=== PATIENT | male | born 1960 | race Caucasian/White ===

== ENCOUNTER 2018-07-27 09:44 | Emergency (ER) | payer MEDICARE, MEDICAID ==
[~2018-07-27] VITALS: Ht 175.3 cm; Wt 77.3 kg
[2018-07-27 09:50] VITALS: Ht 175.3 cm; Wt 77.3 kg
[2018-07-27] MEDS ORDERED: BP PILL (09:52)
[2018-07-27] MEDS ORDERED: NEURONTIN 300300 MG PO (09:52)
[2018-07-27] MEDS ORDERED: [UNRECOGNIZED DRUG - REMARK] (09:53)
[2018-07-27] MEDS ORDERED: ZOFRAN ODT4 MG/UDTAB PO (10:56)
[2018-07-27 11:32] VITALS: BP 108/79
== END 2018-07-27 11:33 | disposition home or self-care (01) ==
LOC: D.ER 09:44
DX: G43.909 Migraine, unspecified, not intractable, without status migrainosus (principal); R11.0 Nausea

== ENCOUNTER 2018-08-12 12:47 | Emergency (ER) | payer MEDICAID ==
[~2018-08-12] VITALS: Ht 175.3 cm; Wt 77.3 kg
[~2018-08-12 12:47] MED LIST: BP PILL; NEURONTIN 300300 MG PO; ZOFRAN ODT4 MG/UDTAB PO; [UNRECOGNIZED DRUG - REMARK]
[2018-08-12 12:54] VITALS: Ht 175.3 cm; Wt 77.3 kg
[2018-08-12 15:25] LABS: BASOPHILS 0.4 % (0-2); EOSINOPHILS 1.3 % (0-7); HEMATOCRIT 43.3 % (42.0-54.0); HEMOGLOBIN 15.3 g/dL (13.5-17.5); IMMATURE GRANULOCYTES 0.3 % (0-5); LYMPHOCYTES 13.4 % (15-50); MCH 31.8 pg (26.0-34.0); MCHC 35.3 g/dL (31.0-37.0); MEAN PLATELET VOLUME 10.1 fL (7.4-10.4); MONOCYTES 9.1 % (2-11); NEUTROPHILS 75.5 % (40-80); PLATELET COUNT 282 10x3/uL (130-400); RBC 4.81 10x6/uL (4.20-6.10); RDW 14.2 % (11.5-14.5)
[2018-08-12 15:38] LABS: ALBUMIN 3.6 g/dL (3.4-5.0); ANION GAP 12.1 mmol/L (8-16); BILIRUBIN - TOTAL 0.58 mg/dL (0.2-1.3); CARBON DIOXIDE 26.1 mmol/L (21.0-32.0); CREATININE - SERUM 1.1 mg/dL (0.6-1.3); POTASSIUM - SERUM 4.2 mmol/L (3.5-5.1); PROTEIN - SERUM 7.1 g/dL (6.4-8.2)
[2018-08-12] MEDS ORDERED: TORADOL10 MG PO (17:00)
[2018-08-12 19:23] VITALS: BP 128/61
== END 2018-08-12 18:34 | disposition home or self-care (01) ==
LOC: D.ER 12:47
PROVIDERS: Family Medicine
DX: H60.502 Unspecified acute noninfective otitis externa, left ear (principal); R50.9 Fever, unspecified; E86.0 Dehydration; R05 Cough

== ENCOUNTER 2018-08-17 07:06 | Emergency (ER) | payer MEDICAID ==
[~2018-08-17] VITALS: Ht 175.3 cm; Wt 77.3 kg
[~2018-08-17 07:06] MED LIST changes: +TORADOL10 MG PO
[2018-08-17 07:14] VITALS: Ht 175.3 cm; Wt 77.3 kg
[2018-08-17] MEDS ORDERED: NAPROSYN500 MG PO (07:44)
[2018-08-17] MEDS ORDERED: CLEOCIN HCL300 MG PO (07:44)
[2018-08-17 07:54] VITALS: BP 124/83
== END 2018-08-17 07:54 | disposition home or self-care (01) ==
LOC: D.ER 07:06
DX: M71.122 Other infective bursitis, left elbow (principal); I10 Essential (primary) hypertension; K21.9 Gastro-esophageal reflux disease without esophagitis

== ENCOUNTER 2018-09-28 08:40 | Emergency (ER) | payer MEDICAID ==
[~2018-09-28] VITALS: Ht 175.3 cm; Wt 77.3 kg
[~2018-09-28 08:40] MED LIST changes: +CLEOCIN HCL300 MG PO; +NAPROSYN500 MG PO
[2018-09-28 08:51] VITALS: Ht 175.3 cm; Wt 77.3 kg
[2018-09-28 09:15] LABS: BASOPHILS 0.5 % (0-2); EOSINOPHILS 3.3 % (0-7); HEMATOCRIT 41.9 % (42.0-54.0); IMMATURE GRANULOCYTES 0.2 % (0-5); MCH 31.8 pg (26.0-34.0); MCHC 35.8 g/dL (31.0-37.0); MEAN PLATELET VOLUME 9.5 fL (7.4-10.4); MONOCYTES 9.5 % (2-11); NEUTROPHILS 63.5 % (40-80); PLATELET COUNT 278 10x3/uL (130-400); RBC 4.71 10x6/uL (4.20-6.10); RDW 14.2 % (11.5-14.5); WBC 10.1 10x3/uL (4.8-10.8)
[2018-09-28 09:36] LABS: ALBUMIN 3.7 g/dL (3.4-5.0); ALKALINE PHOSPHATASE 71 U/L (46-116); ALT (SGPT) 24 U/L (10-68); BILIRUBIN - TOTAL 0.39 mg/dL (0.2-1.3); CALC OSMOLALITY 259 mosm/kg (275-300); CALCIUM 9.2 mg/dL (8.5-10.1); CARBON DIOXIDE 25.4 mmol/L (21.0-32.0); CHLORIDE - SERUM 102 mmol/L (98-107); GLUCOSE 125 mg/dL (74-106); POTASSIUM - SERUM 4.5 mmol/L (3.5-5.1); SODIUM 126 mmol/L (136-145); UREA NITROGEN 30 mg/dL (7-18); eGFR NON AFRICAN AMERICAN 82 mL/min (90-120)
[2018-09-28 10:14] LABS: APPEARANCE CLEAR (CLEAR); BACTERIA FEW /hpf (NONE SEEN); BILIRUBIN NEGATIVE (NEGATIVE); COLOR YELLOW (YELLOW); EPITHELIAL CELLS OCC /hpf (0-5); GLUCOSE NEGATIVE (NEGATIVE); KETONE NEGATIVE (NEGATIVE); MUCUS <1+ /lpf (NONE SEEN); NITRITE NEGATIVE (NEGATIVE); PROTEIN NEGATIVE (NEGATIVE); RED CELLS - URINE OCC /hpf (0-5); SPECIFIC GRAVITY 1.015 (1.005-1.020); UROBILINOGEN NORMAL (NORMAL); WHITE CELLS - URINE 0-5 /hpf (0-5)
[2018-09-28 12:02] VITALS: BP 152/84
== END 2018-09-28 12:04 | disposition home or self-care (01) ==
LOC: D.ER 08:40
PROVIDERS: Emergency Medicine
DX: T67.5XXA Heat exhaustion, unspecified, initial encounter (principal); X58.XXXA Exposure to other specified factors, initial encounter; Y93.89 Activity, other specified; Y92.89 Other specified places as the place of occurrence of the external cause; E86.0 Dehydration

== ENCOUNTER 2018-12-08 07:52 | Emergency (ER) | payer MEDICAID ==
[~2018-12-08] VITALS: Ht 175.3 cm; Wt 80.9 kg
[2018-12-08 07:57] VITALS: Ht 175.3 cm; Wt 80.9 kg
[2018-12-08 08:41] LABS: BASOPHILS 0.5 % (0-2); HEMATOCRIT 42.7 % (42.0-54.0); HEMOGLOBIN 14.5 g/dL (13.5-17.5); IMMATURE GRANULOCYTES 0.2 % (0-5); LYMPHOCYTES 21.4 % (15-50); MCH 31.2 pg (26.0-34.0); MCV 91.8 fL (80.0-100.0); MEAN PLATELET VOLUME 9.9 fL (7.4-10.4); MONOCYTES 11.9 % (2-11); PLATELET COUNT 294 10x3/uL (130-400); RBC 4.65 10x6/uL (4.20-6.10); RDW 13.9 % (11.5-14.5); WBC 8.6 10x3/uL (4.8-10.8)
[2018-12-08 08:49] LABS: APTT 31.9 SECONDS (22.8-39.4); INR 0.98 (0.85-1.17); PROTIME 12.5 SECONDS (11.6-15.0)
[2018-12-08 08:55] LABS: ALBUMIN 3.5 g/dL (3.4-5.0); ALKALINE PHOSPHATASE 67 U/L (46-116); ALT (SGPT) 39 U/L (10-68); CALC OSMOLALITY 278 mosm/kg (275-300); CALCIUM 8.5 mg/dL (8.5-10.1); CARBON DIOXIDE 28.4 mmol/L (21.0-32.0); CHLORIDE - SERUM 105 mmol/L (98-107); CREATININE - SERUM 0.9 mg/dL (0.6-1.3); GLUCOSE 96 mg/dL (74-106); POTASSIUM - SERUM 4.3 mmol/L (3.5-5.1); PROTEIN - SERUM 6.9 g/dL (6.4-8.2); SODIUM 139 mmol/L (136-145); UREA NITROGEN 14 mg/dL (7-18); eGFR NON AFRICAN AMERICAN > 90 mL/min (90-120)
[2018-12-08 09:07] LABS: CKMB 1.5 U/L (0.0-3.6); CREATINE KINASE 111 UL (21-232); PRO BNP 181 pg/mL (0-125); TROPONIN-I < 0.017 ng/mL (0.000-0.060)
[2018-12-08 09:39] VITALS: BP 123/89
== END 2018-12-08 09:29 | disposition home or self-care (01) ==
LOC: D.ER 07:52
PROVIDERS: Family Medicine
DX: J06.9 Acute upper respiratory infection, unspecified (principal); Z72.0 Tobacco use; I10 Essential (primary) hypertension

== ENCOUNTER 2018-12-15 10:57 | Inpatient (IN) | payer MEDICAID ==
[~2018-12-15] VITALS: Ht 175.3 cm; Wt 80.7 kg
[2018-12-15] MEDS ORDERED: NYQUILL PO (11:19)
[2018-12-15] MEDS ORDERED: DAYQUILL PO (11:19)
[2018-12-15 11:34] LABS: BASOPHILS 0.5 % (0-2); EOSINOPHILS 4.7 % (0-7); HEMATOCRIT 41.9 % (42.0-54.0); HEMOGLOBIN 14.4 g/dL (13.5-17.5); IMMATURE GRANULOCYTES 0.1 % (0-5); LYMPHOCYTES 31.5 % (15-50); MCH 31.6 pg (26.0-34.0); MCHC 34.4 g/dL (31.0-37.0); MCV 92.1 fL (80.0-100.0); MEAN PLATELET VOLUME 10.3 fL (7.4-10.4); MONOCYTES 8.3 % (2-11); NEUTROPHILS 54.9 % (40-80); PLATELET COUNT 295 10x3/uL (130-400); RBC 4.55 10x6/uL (4.20-6.10); RDW 13.7 % (11.5-14.5); WBC 9.1 10x3/uL (4.8-10.8)
[2018-12-15 11:40] LABS: CALC OSMOLALITY 279 mosm/kg (275-300); CALCIUM 8.5 mg/dL (8.5-10.1); CARBON DIOXIDE 29.3 mmol/L (21.0-32.0); CHLORIDE - SERUM 102 mmol/L (98-107); GLUCOSE 136 mg/dL (74-106); POTASSIUM - SERUM 3.4 mmol/L (3.5-5.1); SODIUM 139 mmol/L (136-145); UREA NITROGEN 12 mg/dL (7-18); eGFR NON AFRICAN AMERICAN 82 mL/min (90-120)
[2018-12-15 11:47] LABS: APTT 32.8 SECONDS (22.8-39.4); INR 0.99 (0.85-1.17); PROTIME 12.6 SECONDS (11.6-15.0)
[2018-12-15 11:57] LABS: ALBUMIN 3.7 g/dL (3.4-5.0); ALKALINE PHOSPHATASE 75 U/L (46-116); ALT (SGPT) 53 U/L (10-68); BILIRUBIN - TOTAL 0.66 mg/dL (0.2-1.3); CKMB 2.9 U/L (0.0-3.6); CREATINE KINASE 353 UL (21-232); PRO BNP 117 pg/mL (0-125); PROTEIN - SERUM 7.2 g/dL (6.4-8.2)
[2018-12-15 11:59] LABS: TROPONIN-I < 0.017 ng/mL (0.000-0.060)
--- NOTE | 2018-12-15 12:01 | NUR ---
PT C/O HEADACHE, REQUESTING MEDICAION FOR HIS PAIN. TREATING PROVIDER NOTIFIED OF PT REQUEST.
--- NOTE | 2018-12-15 12:12 | NUR ---
NOTIFIED BY LAB OF LACTIC ACID OF 2.4 CRITICAL LAB SHEET COMPLETED AND PLACED ON PT'S CHART. TREATING PROVIDER NOTIFIED.
[2018-12-15 12:37] VITALS: BP 99/64
[2018-12-15 14:59] VITALS: BP 119/74; BMI 26.3
[2018-12-15] MEDS ORDERED: PEPCID40 MG PO (15:01)
[2018-12-15] MEDS ORDERED: FLORINEF 0.1 M0.1 MG PO (15:03)
[2018-12-15 16:16] VITALS: BP 119/74
[2018-12-15 16:41] LABS: APPEARANCE CLEAR (CLEAR); BILIRUBIN NEGATIVE (NEGATIVE); COLOR YELLOW (YELLOW); GLUCOSE 100 mg/dL (NEGATIVE); KETONE NEGATIVE (NEGATIVE); NITRITE NEGATIVE (NEGATIVE); PROTEIN NEGATIVE (NEGATIVE); SPECIFIC GRAVITY 1.015 (1.005-1.020); UROBILINOGEN NORMAL (NORMAL)
[2018-12-15 16:42] LABS: MUCUS <1+ /lpf (NONE SEEN); RED CELLS - URINE 0-5 /hpf (0-5); WHITE CELLS - URINE 0-5 /hpf (NEGATIVE)
--- NOTE | 2018-12-15 18:24 | NUR ---
RESTING IN BED. DENIES NEEDS. BED LOW. CALL CEE AND PERSONAL ITEMS IN REACH.
[2018-12-15 20:28] VITALS: BP 118/73
[2018-12-16 01:16] VITALS: BP 106/79
--- NOTE | 2018-12-16 02:22 | NUR ---
PT RESTING IN BED. EYES CLOSED. NO SIGNS OF DISTRESS. BREATHING EVEN AND UNLABORED. IV SITE RT FA DRESSING CLEAN DRY AND INTACT. NO SIGNS OF INFECTION. SKIN CLEAN DRY AND INTACT. BOWEL SOUNDS ACTIVE. TELE MONITOR ON 82 SINUS. NO LOWER LEG SWELLING PRESENT. WILL CONTINUE PLAN OF CARE. CALL LIGHT IN REACH. BED LOWERED AND LOCKED. BED RAILS UPX1.
--- NOTE | 2018-12-16 03:19 | NUR ---
I have reviewed this patient and I concur with the Shift Assessment completed by the Licensed Practical Nurse today this shift.
[2018-12-16 04:54] VITALS: BP 119/69
[2018-12-16 06:33] LABS: BASOPHILS 0.1 % (0-2); EOSINOPHILS 0.1 % (0-7); HEMATOCRIT 45.4 % (42.0-54.0); HEMOGLOBIN 15.5 g/dL (13.5-17.5); IMMATURE GRANULOCYTES 0.4 % (0-5); LYMPHOCYTES 10.9 % (15-50); MCHC 34.1 g/dL (31.0-37.0); MCV 93.6 fL (80.0-100.0); MEAN PLATELET VOLUME 11.2 fL (7.4-10.4); MONOCYTES 4.5 % (2-11); PLATELET COUNT 310 10x3/uL (130-400); RBC 4.85 10x6/uL (4.20-6.10)
[2018-12-16 06:59] LABS: WBC 16.5 10x3/uL (4.8-10.8)
[2018-12-16 07:33] LABS: CALC OSMOLALITY 283 mosm/kg (275-300); CALCIUM 8.9 mg/dL (8.5-10.1); CHLORIDE - SERUM 107 mmol/L (98-107); GLUCOSE 140 mg/dL (74-106); POTASSIUM - SERUM 4.7 mmol/L (3.5-5.1); SODIUM 141 mmol/L (136-145); eGFR NON AFRICAN AMERICAN 82 mL/min (90-120)
--- NOTE | 2018-12-16 07:35 | NUR ---
PT SITTING UP IN BED WITH FAMILY AT BEDSIDE. RESP SHALLOW AT THIS TIME HE VOICES RETURNING FROM BATHROOM. IV TO RIGHT FOREARM WITH NS @ 50ML/HR INFUSING VIA PUMP. SITE WITHOUT REDNESS OR EDEMA. PT DENIES PAIN AT THIS TIME. DENIES FURTHER NEEDS. CL WITHIN REACH. ENCOURAGED TO CALL WITH NEEDS. CONTINUE POC
[2018-12-16 07:37] LABS: UREA NITROGEN 16 mg/dL (7-18)
[2018-12-16 08:48] VITALS: BP 118/81
[2018-12-16 09:49] VITALS: BMI 26.3
--- NOTE | 2018-12-16 09:53 | MORECARE ---
CASE MANAGEMENT DISCHARGE SUMMARY PATIENT: MIKEY RIDLEY JR UNIT: [id number] ADM DATE: 12/15/18 AGE: 58 : 62 SEX: M ROOM/BED: D.2207 AUTHOR: STANISLAV RAI PHYSICIAN: REFERRING PHYSICIAN: MELA DEE MD DATE OF SERVICE: 12/16/18 Discharge Plan Patient Name: MIKEY RIDLEY Facility: [facility]:[place] : 1960 Planned Disposition: Home or Self Care Anticipated Discharge Date: Discharge Date: Expected LOS: Initial Reviewer: [id number] Initial Review Date: 12/15/2018 Generated: 12/16/18 10:52 am Patient Name: MIKEY RIDLEY Page [id number] at 0953 All edits/amendments must be made on the electronic document DICTATION DATE: 12/16/18951 MAMMAL KEEPER: LOWELL 12/16/18951 RPT#: [id number] DC DATE: STATUS: ADM IN [facility] [address] [place] [address] END OF REPORT
--- NOTE | 2018-12-16 10:00 | MORECARE ---
CASE MANAGEMENT DISCHARGE SUMMARY PATIENT: MIKEY RIDLEY JR UNIT: [id number] ADM DATE: 12/15/18 AGE: 58 : 62 SEX: M ROOM/BED: D.2207 AUTHOR: CECELIADOC PHYSICIAN: REFERRING PHYSICIAN: MELA DEE MD DATE OF SERVICE: 12/16/18 Discharge Plan Patient Name: MIKEY RIDLEY Facility: [facility]:[place] : 1960 Planned Disposition: Home or Self Care Anticipated Discharge Date: Discharge Date: Expected LOS: Initial Reviewer: [email or web address] Initial Review Date: 12/15/2018 Generated: 12/16/18 10:59 am Comments DCP- Discharge Planning Updated by [id number]: Kassandra Gross on 12/16/18 8:[address] Patient Name: MIKEY RIDLEY Admission Status: ER Accout number: [id number] Admission Date: 12-15-2018 : 1960 Admission Diagnosis: Attending: MELA DEE Current LOS: 1 Anticipated DC Date: Planned Disposition: Home or Self Care Primary Insurance: MEDICAID [place] Discharge Planning Comments: CM met with patient to complete initial dc planning assessment. CM educated patient on the CM role and verbal consent given by patient to complete assessment. Patient lives at home with a roommate where he is independent with his care at home. At discharge patient plans to return home and feels this is a safe discharge. He said that he will drive himself home. CM discussed availability of home health, rehab services, and medical equipment. He does not use anything, but might need resp. DME. He signed a RAMON, but does not care who he uses as long as his insurance covers it. Patient denied known discharge needs at this time. CM will continue to follow and will assist as needed with dc plans/needs. Insights Strategist: Kassandra Gross DCPIA - Discharge Planning Initial Assessment Updated by [email or web address]: Kassandra Gross on 12/16/18 9:53 am * Is the patient Alert and Oriented? Yes * How many steps to enter\exit or inside your home? * PCP LUCY * Pharmacy [facility] * Preadmission Environment Home Alone * ADLs Independent * Equipment None * List name and contact numbers for known caregivers / representatives who currently or will assist patient after discharge: WALLACE RIDLEY [phone] * Verbal permission to speak to the caregivers and representatives has been obtained from the patient. N/A * Community resources currently utilized None * Additional services required to return to the preadmission environment? No * Can the patient safely return to the preadmission environment? Yes * Has this patient been hospitalized within the prior 30 days at any hospital? No Coverage Notice Reviewer: [id number] Liam Gross Notice Issued Date-Time: 12/16/2018 9:40 Notice Type: Patient Choice Letter Notice Delivered To: Patient Relationship to Patient: Grout Pump Operator Name: Delivery Method: HAND - Hand Delivered [place] Days: Prior Verbal Notification: Recipient Understood Notice: Yes Recipient Signature: Yes Med Rec Note Co-signed by Attending: Coverage Notice Comment: ramon for dme Last DP export: 12/16/18 8:53 Patient Name: MIKEY RIDLEY Page [phone] at 1000 All edits/amendments must be made on the electronic document DICTATION DATE: 12/16/18958 MACHINE DEICER ELEMENT WINDER: LOWELL 12/16/18958 RPT#: [id number] DC DATE: STATUS: ADM IN [facility] [address] [place] [address] END OF REPORT
[2018-12-16 10:45] LABS: UDS - AMPHET NEGATIVE QUAL (NEGATIVE); UDS - BARB POSITIVE QUAL (NEGATIVE); UDS - BENZO NEGATIVE QUAL (NEGATIVE); UDS - COCAINE NEGATIVE QUAL (NEGATIVE); UDS - OPIATE NEGATIVE QUAL (NEGATIVE); UDS - PCP NEGATIVE QUAL (NEGATIVE); UDS - THC NEGATIVE QUAL (NEGATIVE)
[2018-12-16 12:57] VITALS: BP 152/88
[2018-12-16 16:43] VITALS: BP 134/86
[2018-12-16 19:00] VITALS: BP 130/73
--- NOTE | 2018-12-17 01:32 | NUR ---
PT RESTING IN BED. EYES CLOSED. NO SIGNS OF DISTRESS. BREATHING EVEN AND UNLABORED. IV SITE RT FA DRESSING CLEAN DRY AND INTACT. NO SIGNS OF INFECTION. SKIN CLEAN DRY AND INTACT. TELE MONITOR ON 92 SINUS. WILL CONTINUE PLAN OF CARE. CALL LIGHT IN REACH. BED LOWERED AND LOCKED.
--- NOTE | 2018-12-17 03:05 | NUR ---
I have reviewed this patient and I concur with the Shift Assessment completed by the Licensed Practical Nurse today this shift.
[2018-12-17 05:00] VITALS: BP 111/74
[2018-12-17 06:56] LABS: BASOPHILS 0.2 % (0-2); EOSINOPHILS 0 % (0-7); HEMATOCRIT 45.3 % (42.0-54.0); HEMOGLOBIN 15.1 g/dL (13.5-17.5); IMMATURE GRANULOCYTES 0.4 % (0-5); LYMPHOCYTES 9.9 % (15-50); MCH 32.3 pg (26.0-34.0); MCHC 33.3 g/dL (31.0-37.0); MONOCYTES 4.6 % (2-11); NEUTROPHILS 84.9 % (40-80); PLATELET COUNT 323 10x3/uL (130-400); RBC 4.68 10x6/uL (4.20-6.10); RDW 14.8 % (11.5-14.5)
[2018-12-17 07:01] LABS: MCV 96.8 fL (80.0-100.0)
--- NOTE | 2018-12-17 07:07 | NUR ---
ALERT AND ORIENTED. LUNGS CLEAR BILATERALLY. HEART SOUNDS S1 AND S2 HEARD IN ALL ERIC. TELEMETRY IN PLACE. BOWEL SOUNDS ACTIVE X 4. SKIN INTACT WITHOUT REDNESS. C/O HEADACHE. NPO STATUS. PATIENT NOT SURE WHY NPO. WILL TALK TO MATCH MARKER THIS AM. DENIES NEEDS. BED LOW. CALL CEE AND PERSONAL ITEMS IN REACH. WILL CONTINUE TO MONITOR.
[2018-12-17 07:12] LABS: CALC OSMOLALITY 276 mosm/kg (275-300); CALCIUM 8.7 mg/dL (8.5-10.1); CARBON DIOXIDE 20.1 mmol/L (21.0-32.0); CHLORIDE - SERUM 105 mmol/L (98-107); GLUCOSE 116 mg/dL (74-106); SODIUM 137 mmol/L (136-145); UREA NITROGEN 18 mg/dL (7-18)
[2018-12-17 07:13] LABS: CREATININE - SERUM 0.7 mg/dL (0.6-1.3); POTASSIUM - SERUM 5.1 mmol/L (3.5-5.1); eGFR NON AFRICAN AMERICAN > 90 mL/min (90-120)
[2018-12-17 08:45] VITALS: BP 124/78
--- NOTE | 2018-12-17 09:16 | NUR ---
RESTING IN BED. DENIES NEEDS. WILL CONTINUE TO MONITOR.
[2018-12-17 11:00] VITALS: Ht 175.3 cm; Wt 80.7 kg
[2018-12-17 12:43] VITALS: BP 125/53
--- NOTE | 2018-12-17 13:19 | NUR ---
ECHO DONE. REGULAR TRAY ORDERED FOR PATIENT PER ANN TELLO. PATIENT REMOVED TELEMETRY. RETURNED TO FEB AT MONITORS.
[2018-12-17] MEDS ORDERED: PREDNISONE10 MG PO (14:01)
--- NOTE | 2018-12-17 15:13 | NUR ---
IV REMOVED FROM RFA WITH TIP INTACT.
[2018-12-17] MEDS ORDERED: ALBUTEROL SULF8.5 GM INH (15:28)
--- NOTE | 2018-12-17 15:48 | NUR ---
DISCHARGE EDUCATION PROVIDED BOTH WRITTEN AND VERBAL. VERBALIZED UNDERSTANDING. DENIES FURTHER QUESTIONS. IV PREVIOUSLY REMOVED FROM RFA. PATIENT DISCHARGED HOME WITH ALL BELONGINGS.
--- NOTE | 2018-12-19 09:04 | EC ---
PATIENT:MIKEY RIDLEY JR DATE OF SERVICE: 12/15/18 SEX: M MEDICAL RECORD: [id number] DATE OF : 62 LOCATION:[facility] AGE OF PATIENT: 58 ADMISSION DATE: 12/15/18 REFERRING PHYSICIAN: INTERPRETING PHYSICIAN: JOSH CASTILLO MD ECHOCARDIOGRAM REPORT ECHO CHARGES 4 ECHO COMPLETE Date: 12/17/18 CLINICAL DIAGNOSIS: SOB ECHOCARDIOGRAPHIC MEASUREMENTS (adult normal given) AC root (d.<3.7cm) 3.4 cm LV Septum d (<1.2 cm> 1.5 cm Valve Excursion 2.1 cm LV Septum (systole) 2.0 cm Left Atria (s.<4.0cm> 3.9 cm LVPW d(<1.2cm) 1.5 cm RV (d.<2.3cm) 3.0 cm LVPW (sytole) 2.1 cm LV diastole(<5.6CM) 5.5 cm MV E-F(>70mm/sec) cm LV systole 2.9 cm LVOT Diameter 2.1 cm MV exc.(>10mm) cm Est.ejection fraction (50-75%) % DOPPLER: LVIT cm/sec A 55.0 cm/sec E 85.0 cm/sec LA cm/sec RVSP 24.4 mmHg LVOT 124 cm/sec AOP1/2T m/s Asc. Ao 201 cm/sec RVOT 75.0 cm/sec RA cm/sec PA 102 cm/sec AV Gradient Peak 16.2 mmHg AV Mean 8.7 mmHg AV Area 2.2 cm MV Gradient Peak 4.3 mmHg MV Mean 1.5 mmHg MV Area cm COMMENTS: Dean Of Admissions: Elda BUCKLEYOE Graduate Advisor: 3 Dr. Howard TAPE# PACS Pericardial Effusion N DATE OF SERVICE: Adequate 2D, color flow imaging, spectral Doppler, and M-Mode LVH is present. LV internal dimension is normal. Wall motion is normal. EF is greater than or equal to 55%. Aortic valve is tricuspid. No evidence of stenosis by Doppler interrogation. Left atrium normal at 3.9 cm. Mitral valve is thickened. [id number] MR. Right-sided chambers are grossly normal. Mild TR. ECHOCARDIOGRAM REPORT [id number] MIKEY RIDLEY TRANSINT:[id number] Voice Confirmation ID: [id number] DOCUMENT ID: [id number] JOSH CASTILLO MD at 0904 CC: [id number] DICTATION DATE: 12/18/18 1016 THREAD CUTTER: 12/18/18 1200 DIS IN 12/17/18 [facility] [address] [place] [id number]
--- NOTE | 2018-12-20 13:33 | MORECARE ---
CASE MANAGEMENT DISCHARGE SUMMARY PATIENT: MIKEY RIDLEY JR UNIT: [id number] ADM DATE: 12/15/18 AGE: 58 : 62 SEX: M ROOM/BED: D.2207 AUTHOR: CECELIADOC PHYSICIAN: REFERRING PHYSICIAN: MELA DEE MD DATE OF SERVICE: 12/20/18 Discharge Plan Patient Name: MIKEY RIDLEY Facility: [facility]:[place] : 1960 Planned Disposition: Home or Self Care Anticipated Discharge Date: Discharge Date: 12/17/2018 Expected LOS: Initial Reviewer: [email or web address] Initial Review Date: 12/15/2018 Generated: 12/20/18 2:32 pm Comments DCP- Discharge Planning Updated by [id number]: Kassandra Gross on 12/16/18 8:[address] Patient Name: MIKEY RIDLEY Admission Status: ER Accout number: [id number] Admission Date: 12-15-2018 : 1960 Admission Diagnosis: Attending: MELA DEE Current LOS: 1 Anticipated DC Date: Planned Disposition: Home or Self Care Primary Insurance: MEDICAID [place] Discharge Planning Comments: CM met with patient to complete initial dc planning assessment. CM educated patient on the CM role and verbal consent given by patient to complete assessment. Patient lives at home with a roommate where he is independent with his care at home. At discharge patient plans to return home and feels this is a safe discharge. He said that he will drive himself home. CM discussed availability of home health, rehab services, and medical equipment. He does not use anything, but might need resp. DME. He signed a RAMON, but does not care who he uses as long as his insurance covers it. Patient denied known discharge needs at this time. CM will continue to follow and will assist as needed with dc plans/needs. Snaker Tractor Driver: Kassandra Gross DCPIA - Discharge Planning Initial Assessment Updated by [id number]: Kassandra Gross on 12/16/18 9:53 am * Is the patient Alert and Oriented? Yes * How many steps to enter\exit or inside your home? * PCP LUCY * Pharmacy [facility] * Preadmission Environment Home Alone * ADLs Independent * Equipment None * List name and contact numbers for known caregivers / representatives who currently or will assist patient after discharge: WALLACE RIDLEY [phone] * Verbal permission to speak to the caregivers and representatives has been obtained from the patient. N/A * Community resources currently utilized None * Additional services required to return to the preadmission environment? No * Can the patient safely return to the preadmission environment? Yes * Has this patient been hospitalized within the prior 30 days at any hospital? No Coverage Notice Reviewer: [id number] Liam Gross Notice Issued Date-Time: 12/16/2018 9:40 Notice Type: Patient Choice Letter Notice Delivered To: Patient Relationship to Patient: Nut Sheller Machine Operator Name: Delivery Method: HAND - Hand Delivered [place] Days: Prior Verbal Notification: Recipient Understood Notice: Yes Recipient Signature: Yes Med Rec Note Co-signed by Attending: Coverage Notice Comment: ramon for dme Last DP export: 12/16/18 9:00 Patient Name: MIKEY RIDLEY Page [phone] at 1333 All edits/amendments must be made on the electronic document DICTATION DATE: 12/20/18 1332 AGRICULTURAL RESEARCH TECHNOLOGIST: LOWELL 12/20/18 1332 RPT#: [id number] DC DATE:12/17/18 STATUS: DIS IN [facility] [address] [place] [address] END OF REPORT
== END 2018-12-17 15:49 | disposition home or self-care (01) | DRG 191 ==
LOC: D.ER 10:57 → D.MS 13:39
PROVIDERS: Family Medicine; ADMIT Internal Medicine Nephrology; ATTEND Internal Medicine Nephrology
DX: J43.9 Emphysema, unspecified (principal); F17.213 Nicotine dependence, cigarettes, with withdrawal; E87.6 Hypokalemia; K21.9 Gastro-esophageal reflux disease without esophagitis; Z95.0 Presence of cardiac pacemaker

== ENCOUNTER → 2018-12-27 09:35 | Outpatient (CLI) | payer MEDICAID ==
[2018-12-17 11:00] VITALS: BMI 26.3
[~2018-12-27 09:35] MED LIST changes: +ALBUTEROL SULF8.5 GM INH; +BAYER CHEWABLE81 MG PO; +DAYQUILL PO; +FLORINEF 0.1 M0.1 MG PO; +NYQUILL PO; +PEPCID40 MG PO; +PLAVIX75 MG PO; +PREDNISONE10 MG PO; +RANITIDINE HCL150 M1 PO; +TOPAMAX50 MG PO
--- NOTE | 2018-12-30 12:49 | ST ---
PATIENT:MIKEY RIDLEY JR MEDICAL RECORD: [id number] SEX: M LOCATION:[facility] ORDER #: ADMISSION DATE: 12/27/18 AGE OF PATIENT: 58 REFERRING PHYSICIAN: INTERPRETING PHYSICIAN: MARRY MELGAR MD DATE OF SERVICE: 12/27/2018 INDICATIONS: Angina, shortness of breath. He was exercised on standard Lexiscan protocol with 26 mCi of sestamibi injected at peak stress with 8 mCi used previously for rest images. FINDINGS: Gated SPECT reveals preserved ejection fraction at 72% with good wall motioning and thickening and brightening throughout all segments. SPECT Imaging: Cardiolite was used as myocardial perfusion agent. There is reversible ischemia inferiorly and apically. The degree of reversibility is severe. The amount of myocardium involved is moderate. OVERALL IMPRESSION: This is an intermediate risk nuclear stress test. Reversible ischemia is severe inferiorly and apically suggestive of hemodynamically significant coronary artery disease. TRANSINT:[id number] Voice Confirmation ID: [id number] DOCUMENT ID: [id number] MARRY MELGAR MD at 1249 CC: RERE AYALA MD [id number] DICTATION DATE: 12/29/18 1546 FIRER GLOST KILN: 12/30/18 0421 DEP CLI 12/27/[id number] [place] [address]
== END | disposition home or self-care (01) ==
LOC: D.HCCARDIO 09:35
PROVIDERS: ATTEND Internal Medicine Interventional Cardiology
DX: I20.9 Angina pectoris, unspecified (principal)

== ENCOUNTER 2019-01-05 07:06 | Outpatient (CLI) | payer MEDICAID ==
[~2019-01-05] VITALS: Ht 175.3 cm; Wt 89.5 kg
--- NOTE | ~2019-01-05 | HEMODYNAMI ---
PATIENT:MIKEY RIDLEY JR MEDICAL RECORD: [id number] : 62 LOCATION:[facility] ADMISSION DATE: 01/05/19 Generatedon:01/05/201910:14 Patient name: MIKEY RIDLEY Patient #: [id number] SSN: : 1960 Date of study: 01/05/2019 Page: Of Hemodynamic Procedure Report Patient Data Patient Demographics Procedure consent was obtained First Name: MIKEY Gender: Male Last Name: KHAI Suffix: Patient #: [id number] : 1960 Age: 58 year(s) Accession #: Race: Unknown [id number] Additional ID: [id number] Contact details Address: [address] [place] [address] State: [place] City: [facility] Zip code: [address] Admission Admission Data Admission Date: 01/05/2019 Admission Time: 7:06 Procedure Procedure Types Cath Procedure Diagnostic Procedure LHC LHC w/Coronaries FFR/IVUS FFR Initial Sedation Charges Moderate Sedation up to 30 minutes PCI Procedure Coronary Stent Coronary Stent Initial Procedure Description Procedure Date Procedure Date: 01/05/2019 Procedure Start Time: 9:42 Procedure End Time: 10:07 Procedure Staff Name Function Colby Morrow MD Performing Physician Sarah Diane RT Monitor Cade Steward RT Scrub Renea Kraus RN Nurse Procedure Data Cath Procedure Fluoroscopy Diagnostic fluoroscopy Total fluoroscopy Time: 4.5 time: 4.5 min min Diagnostic fluoroscopy Total fluoroscopy dose: 802 dose: 802 mGy mGy Contrast Material Contrast Material Type Amount (ml) Isovue 300 107 Entry Location Entry Primary Successful Side Size Upsize Upsize Entry Closure Succes sful Closure Location (Fr) 1 (Fr) 2 (Fr) Remarks Device Remarks Femoral Right 5 Fr 6 Fr artery Short Estimated blood loss: 5 ml Diagnostic catheters Device Type Used For End Catheter Placement DIAGNOSTIC AR2 MOD 5 Fr Right Coronary catheter ([id number]) Angiography Procedure Complications No complications Procedure Medications Medication Administration Route Dosage 0.9% NaCl I.V. 100 ml/hr Oxygen etCO2 Nasal cannula 2 l/min Lidocaine 2% added to field 20 Heparin Flush Bag added to field 2 bags (1000units/500ml NS) Radial Cocktail added to field 1 syringe (Verapamil 2mg/Nitro 400mcg/Heparin 1500units) Versed I.V. 2 mg Fentanyl I.V. 50 mcg Versed I.V. 2 mg Fentanyl I.V. 50 mcg Heparin Bolus I.V. 4000 units Integrilin (Bolus I.V. 7.8 ml 2mg/ml) Integrilin (Bolus wasted 2.2 ml 2mg/ml) Plavix P.O. 600 mg Hemodynamics Rest Heart Rate: 75 (bpm) Pressure Samples Time Site Value (mmHg) Purpose Heart Use Rate(bpm) 9:49 LV 100/24,66 Snapshot 48 Snapshots Pre Cath Intra NCS Post Cath Vital Signs Time Heart Resp SPO2 etCO2 NIBP (mmHg) Rhythm Pain Sedation Rate (ipm) (%) (mmHg) Status Level (bpm) 8:52:08 74 15 99 12 123/84(104) NSR 0 (11) 10(A) , No pain 8:56:16 73 9 97 22.7 125/91(103) NSR 0 (11) 10(A) , No pain 9:00:20 64 10 96 35.6 124/91(99) NSR 0 (11) 10(A) , No pain 9:04:26 65 10 96 29.6 117/83(115) NSR 0 (11) 10(A) , No pain 9:08:32 70 10 96 28 118/76(112) NSR 0 (11) 10(A) , No pain 9:12:37 72 9 96 34.9 121/76(108) NSR 0 (11) 10(A) , No pain 9:16:39 65 10 96 32.6 128/91(107) NSR 0 (11) 10(A) , No pain 9:20:51 67 12 96 8.3 108/70(95) NSR 0 (11) 10(A) , No pain 9:25:44 73 8 100 18.9 107/95(104) NSR 0 (11) 10(A) , No pain 9:30:24 67 9 97 31.1 129/85(103) NSR 0 (11) 10(A) , No pain 9:34:34 66 9 98 31.8 126/77(103) NSR 0 (11) 10(A) , No pain 9:39:21 68 9 98 40.9 112/88(108) NSR 0 (11) 10(A) , No pain 9:43:21 68 8 97 42.4 120/85(100) NSR 0 (11) 10(A) , No pain 9:47:24 66 10 96 40.2 122/83(117) NSR 0 (11) 10(A) , No pain 9:52:23 65 9 98 42.5 135/86(110) NSR 0 (11) 9(A) , No pain 9:56:33 65 12 98 35.6 136/90(114) NSR 0 (11) 9(A) , No pain 10:00:43 66 10 97 43.2 134/89(114) NSR 0 (11) 9(A) , No pain 10:04:51 69 13 98 31.8 127/88(109) NSR 0 (11) 10(A) , No pain Medications Time Medication Route Dose Verified Delivered Reason Note s Effectiveness by by 8:51:22 0.9% NaCl I.V. 100 Colby Renea used for ml/hr Odalys Kraus post manager 8:51:28 Oxygen etCO2 2 l/min Colby Renea used for Nasal Odalys Kraus procedure cannula RN 8:51:34 Lidocaine 2% added 20ml Colby Colby for local to vial Odalys Morrow MD anesthetic field 8:51:38 Heparin Flush added 2 bags Colby Colby used for Bag to Odalys Morrow MD procedure (1000units/500ml field NS) 8:51:43 Radial Cocktail added 1 Colby Colby used for (Verapamil to syringe Odalys Morrow MD procedure 2mg/Nitro field 400mcg/Heparin 1500units) 9:37:50 Versed I.V. 2 mg Colby Renea for sedation Odalys Kraus RN 9:37:59 Fentanyl I.V. 50 mcg Colby Renea for sedation Odalys Kraus RN 9:46:09 Versed I.V. 2 mg Colby Renea for sedation Odalys Kraus RN 9:46:12 Fentanyl I.V. 50 mcg Colby Renea for sedation Odalys Kraus RN 9:58:04 Heparin Bolus I.V. 4000 Colby Renea for veri fied units Odalys Kraus anticoagulation with Dr. SOULEYMANE Morrow 9:58:18 Integrilin I.V. 7.8 ml Colby Tayloryla for (Bolus 2mg/ml) Odalys Kraus antiplatelet RN therapy 9:58:30 Integrilin wasted 2.2 ml Colby Kwona for (Bolus 2mg/ml) Odalys Kraus antiplatelet RN therapy 9:58:36 Plavix P.O. 600 mg Colby Kwona for Odalys Kraus antiplatelet RN therapy Procedure Log Time Note 8:30:57 Cade Steward RT(R) sent for patient. Start room use. 8:46:29 Diagnostic Cath Status : Elective 8:46:55 Procedure Status Elective Heart Cath (OP). 8:47:03 Time tracking: Regular hours (M-F 7:00 - 5:00) 8:47:07 Plan of Care:Hemodynamics will remain stable., Cardiac rhythm will remain stable., Comfort level will be maintained., Respiratory function will remain adequate., Patient/ family verbilizes understanding of procedure., Procedure tolerated without complication., Recovers from procedure without complications.. 8:47:17 Patient received from Pre/Post Procedure Room to CCL 2 Alert and oriented. Tansferred to table in Supine position. 8:47:19 Signed procedure consent form obtained from patient. 8:47:19 Warm blankets applied, and phill hugger turned on for patient comfort. 8:47:20 Correct patient and procedure confirmed by team. 8:47:20 ECG and BP/O2 sat monitors applied to patient. 8:49:38 Risk of Mortality: <0.1 8:49:43 Risk of blood transfusion: 0.2 8:49:49 Risk of JAMIE: <0.1 8:50:04 2) 60-89 Mildly reduced kidney function, and other findings (as for stage 1) point to kidney disease. 8:50:18 Maximum allowable contrast dose (3.7 X eGFR X 0.75)227 ml. 8:51:14 Vital chart was started 8:51:22 0.9% NaCl 100 ml/hr I.V. was administered by Renea Kraus RN; used for procedure; Verbal order read back and verified. 8:51:28 Oxygen 2 l/min etCO2 Nasal cannula was administered by Renea Kraus RN; used for procedure; Verbal order read back and verified. 8:51:34 Lidocaine 2% 20ml vial added to field was administered by Colby Morrow MD; for local anesthetic; Verbal order read back and verified. 8:51:38 Heparin Flush Bag (1000units/500ml NS) 2 bags added to field was administered by Colby Morrow MD; used for procedure; Verbal order read back and verified. 8:51:43 Radial Cocktail (Verapamil 2mg/Nitro 400mcg/Heparin 1500units) 1 syringe added to field was administered by Colby Morrow MD; used for procedure; Verbal order read back and verified. 8:54:26 Baseline sample Acquired. 8:54:32 Rhythm: sinus rhythm 8:54:33 Full Disclosure recording started 8:54:37 H&P Date Dictated: 01/05/2019 Within 30 days and on chart., H&P Addendum completed by physician on day of procedure. (MUST COMPLETE FOR ALL OUTPATIENTS). 8:54:39 Pre-procedure instructions explained to patient. 8:54:39 Pre-op teaching completed and patient verbalized understanding. 8:54:42 Family in patients room. 8:54:44 Patient NPO since Midnight. 8:54:46 Is the patient allergic to Iodine/contrast media? No. 8:54:48 Was the patient premedicated? Yes 8:55:01 Is patient on blood thinner?No 8:57:00 Patient diabetic? No. 8:57:02 Previous problem with sedation/anesthesia? No ? 8:57:09 Snore? Yes 8:57:11 Sleep apnea? No 8:57:13 Deviated septum? No 8:57:13 Opens mouth fully? Yes 8:57:14 Sticks out tongue? Yes 8:57:18 Airway obstruction? Yes copd 8:57:23 Dentures? Yes in tight 8:57:29 Pre procedure: right dorsailis pedis pulse 2+ Normal; easily identifiable; not easily obliterated 8:57:31 Pre procedure: left dorsailis pedis pulse 2+ Normal; easily identifiable; not easily obliterated 8:57:40 Patient pain scale 0/10 ?. 8:57:46 IV patent on arrival in left forearm with 0.9% NaCl at [facility]. 8:57:49 Lab results completed and on chart. 8:58:19 Stress Test: yes; abnormal ? 8:58:29 Right Radial & Right Groin area was prepped with chlora-prep and draped in sterile fashion 8:58:30 Alarms reviewed by RBipin N. 8:58:30 Sharps counted by scrub and verified by R.N. 9:25:42 Zero performed for pressure channel P1 9:36:18 Physician arrived 9:36:19 --------ALL STOP TIME OUT------ 9:36:19 Final Timeout: patient, procedure, and site verified with staff and physician. All members of the team are in agreement. 9:36:21 Right Radial & Right Groin site verified by team. 9:36:24 Fire Safety Assessment: A--An alcohol-based skin anteseptic being used preoperatively., C--Open oxygen or nitrous oxide is being used., D--An ESU, laser, or fiber-optic light is being used. 9:36:27 Physical assessment completed. ASA score P 2 - A patient with mild systemic disease as per Colby Morrow MD. 9:36:31 Sedation plan: IV Moderate Sedation Medication:Versed, Fentanyl 9:36:34 Use device set Radial Dx or PCI 9:36:35 ACIST Syringe (27753) opened to sterile field. 9:36:35 Medline Cath Pack ([id number]) opened to sterile field. 9:36:36 Bag Decanter () opened to sterile field. 9:36:36 ACIST Hand Control (89402) opened to sterile field. 9:36:36 ACIST Manifold (20904) opened to sterile field. 9:36:37 Tegaderm 4 x 4 (1626W) opened to sterile field. 9:36:38 MBrace Wrist Support ([id number]) opened to sterile field. 9:36:41 EMERALD Guide Wire (661-304) opened to sterile field. 9:36:43 SHEATH 6FR RAIN (4608202) opened to sterile field. 9:37:50 Versed 2 mg I.V. was administered by Renea Kraus RN; for sedation; Verbal order read back and verified. 9:37:59 Fentanyl 50 mcg I.V. was administered by Renea Kraus RN; for sedation; Verbal order read back and verified. 9:42:42 Procedure started. 9:42:45 Local anesthetic to right femoral artery with Lidocaine 2% by Colby Morrow MD.INITIAL ACCESS ONLY 9:44:39 unable to gain radial access; preparing for femoral access 9:44:43 Local anesthetic to right femoral artery with Lidocaine 2% by Colby Morrow MD.ADDITIONAL ACCESS 9:45:42 DIAGNOSTIC Multipack 5Fr catheter set ([id number]) opened to sterile field. 9:45:43 SHEATH 5FR [place] (ZIY352) opened to sterile field. 9:46:09 Versed 2 mg I.V. was administered by Renea Kraus RN; for sedation; Verbal order read back and verified. 9:46:12 Fentanyl 50 mcg I.V. was administered by Renea Kraus RN; for sedation; Verbal order read back and verified. 9:46:49 A 5 Fr sheath was inserted into the Right Femoral artery 9:47:05 5 Fr pigtail guide catheter was inserted over the wire 9:49:51 LV hemodynamics recorded. 9:49:52 LV gram done using WATERMAN 9:49:56 Injector settings: Ml/sec: 5, Volume: 15, 9:50:17 EF : 50 % 9:50:39 Catheter removed. 9:50:42 5 Fr jl 4 guide catheter was inserted over the wire 9:50:55 LCA angiography performed. 9:50:58 Injector settings: Ml/sec: 3, Volume: 6, 9:52:33 Catheter removed. 9:52:41 5 Fr 3drc guide catheter was inserted over the wire 9:52:45 Catheter removed. unable to cannulate vessel. 9:52:57 A DIAGNOSTIC AR2 MOD 5 Fr catheter ([id number]) was advanced over the wire and used for Right Coronary Angiography. 9:53:23 SHEATH 6FR [place] (WDO707) opened to sterile field. 9:53:23 INFLATOR Merit BasixCompak (DC6212) opened to sterile field. 9:53:24 Alpine Verrata Plus pressure wire (56888A) opened to sterile field. 9:54:41 RCA angiography performed. 9:54:44 Injector settings: Ml/sec: 3, Volume: 6, 9:54:45 Catheter removed. 9:54:56 GUIDE 6FR XBLAD 3.5 catheter ([id number]) opened to sterile field. 9:55:09 Proceeding to intervention. 9:55:25 Sheath upsized to a 6 Fr Short. 9:55:37 6 Fr xblad 3.5 guide catheter was inserted over the wire 9:55:56 FFR/IFR wire advanced. 9:56:11 Baseline FFR 1. 9:56:35 Wire advanced across lesion. 9:57:13 mLAD lesion measured at 0.87 with IFR 9:57:46 ACC Pre-intervention MELY Flow is 3. 9:57:52 Pre PCI Site: [place] mLAD has 70% stenosis. 9:58:04 Heparin Bolus 4000 units I.V. was administered by Renea Kraus RN; for anticoagulation; verified with Dr. Mrorow Verbal order read back and verified. 9:58:18 Integrilin (Bolus 2mg/ml) 7.8 ml I.V. was administered by Renea Kraus RN; for antiplatelet therapy; Verbal order read back and verified. 9:58:30 Integrilin (Bolus 2mg/ml) 2.2 ml wasted was administered by Renea Kraus RN; for antiplatelet therapy; Verbal order read back and verified. 9:58:36 Plavix 600 mg P.O. was administered by Renea Kraus RN; for antiplatelet therapy; Verbal order read back and verified. 9:59:36 Place stent Inflation Number: 1 A COBRA RX 2.5 X 30 Stent was prepped and advanced across the Mid LAD 70. The stent was deployed at 13 BESS for 0:10 (min:sec) 0. 10:00:30 Stent catheter was removed intact over wire. 10:01:45 Place stent Inflation Number: 2 A COBRA RX 2.5 X 15 Stent was prepped and advanced across the Mid LAD 70. The stent was deployed at 11 BESS for 0:10 (min:sec) 0. 10:03:14 Stent catheter was removed intact over wire. 10:03:47 mLAD lesion measured at 0.97 with IFR 10:03:58 Post PCI Site: [place] mLAD has 0% stenosis. 10:04:08 ACC Post-intervention MELY Flow is 3. 10:04:38 ACT drawn and resulted at 188 seconds. (normal therapeutic range 180-240 seconds). 10:04:39 Wire removed. 10:04:39 Guide catheter removed. 10:05:12 EXOSEAL 6Fr (EX600) opened to sterile field. 10:05:30 Procedure ended.(Physican Out) 10:05:37 Fluoroscopy time 04.50 minutes. 10:05:41 Flurop Dose total: 802 10:05:41 Fluoroscopy dose: 802 mGy 10:05:47 Dose Area Product 79005 mGy/cm. 10:05:51 Contrast amount:Isovue 300 107ml. 10:05:54 Maximum allowable dose exceeded? No. 10:05:55 Sharps counted by scrub and verified by R.N. 10:05:58 Insertion/operative site no bleeding no hematoma. 10:06:01 Post-op/insertion site Right Femoral artery dressed using a 4 x 4 and Tegaderm. 10:06:07 Post Procedure Pulses reassessed and unchanged 10:06:10 Post procedure rhythm: unchanged. 10:06:13 Estimated blood loss: 5 ml 10:06:16 Post procedure instruction explained to patient.Patient verbalizes understanding. 10:06:16 Patient needs reinforcement of post procedure teaching. 10:06:32 Procedure type changed to Cath procedure, Diagnostic procedure, C, [facility] w/Coronaries, FFR/IVUS, FFR Initial, Sedation Charges, Moderate Sedation up to 30 minutes, PCI procedure, Coronary Stent, Coronary Stent Initial 10:06:34 Procedure and supply charges have been captured, reviewed, submitted and are correct. 10:06:39 Procedure Complication : No complications 10:06:42 Vital chart was stopped 10:06:44 [facility] Findings: MVD- PCI performed (see procedure note) 10:06:45 Operative report dictated upon procedure completion. 10:06:46 See physician's report for complete and final results. 10:06:53 Report given to Pre/Post Procedure Room. 10:06:58 Patient transfered to Pre/Post Procedure Room with Stretcher. 10:07:00 Procedure ended. 10:07:00 Full Disclosure recording stopped 10:07:58 ACC-PCI Only Patient was given prescriptions, or instructed by Colby Morrow MD to start/continue the following medications upon discharge: Plavix 10:07:59 End room use (Document Last) Intervention Summary Intervention Notes Time ActionType Lesion and Equipment Action# Pressure Duration Attributes Used 9:59:36 Place stent Mid LAD COBRA RX 1 13 00:10 2.5 X 30 Stent 10:01:45 Place stent Mid LAD COBRA RX 2 11 00:10 2.5 X 15 Stent Device Usage Item Name Manufacture Quantity Catalog Hospital Part Current Minimal Lot# / Number Charge Number Stock Stock Serial# Code ACIST Syringe Acist 1 71435 247721 749926 876816 20 (95741) Medical Systems Inc Medline Cath Medline 1 [id number] 035589 86237 257696 5 Pack ([id number]) Bag Decanter Microtek 1 2001S 646212 21197 537635 5 (2001S) Medical Inc. ACIST Hand Acist 1 54194 313418 069240 882639 5 Control Medical (56364) Systems Inc ACIST Manifold Acist 1 43247 613903 737769 504148 5 (18222) Medical Systems Inc Tegaderm 4 x 4 3M 1 1626W 688824 018707 678503 5 (1626W) MBrace Wrist Advanced 1 140-0250-00 212997 43058 890711 5 Support Vascular (303545655) Dynamics EMERALD Guide Cardinal 1 502-455 012205 477865 701160 5 Wire (502-455) Health SHEATH 6FR Cardinal 1 3940486 804223 1797724 459138 5 RAIN (0156021) Health DIAGNOSTIC Cardinal 1 NI0727 827973 70465 263351 30 Multipack 5Fr Health catheter set (YD0146) SHEATH 5FR Terumo 1 WIB047 508057 051651 468136 5 [place] (VAV364) DIAGNOSTIC AR2 Cardinal 1 [id number] 892681 943224 357422 20 MOD 5 Fr Health catheter (383635C) SHEATH 6FR Terumo 1 VSS545 910627 796942 022513 40 [place] (LWO766) INFLATOR Merit Merit 1 UB0041 286015 124871 375926 15 [employer] (DO8443) Alpine Alpine 1 52944J 721644 112309716 550542 5 Verrata Plus pressure wire (79923F) GUIDE 6FR Cardinal 1 12143034 179288 394463 375788 10 XBLAD 3.5 Health catheter (95709147) COBRA RX 2.5 X Celonova 1 061409 [id number] 694419 1 [id number] 30 stent Biosciences () COBRA RX 2.5 X Celonova 1 133299 [id number] 9856389 7 [id number] 15 stent Biosciences () EXOSEAL 6Fr Cardinal 1 EX600 151773 869105 011816 10 (EX600) Health Signature Audit [place] Stage Time Signature Unsigned Intra-Procedure 01/05/2019 Sarah Diane 10:13:19 AM RT(R) Intra-Procedure 01/05/2019 Renea Kraus 10:14:13 AM RN Intra-Procedure 01/05/2019 Colby Morrow 10:14:33 AM Signatures Performing Physician : Signature : Colby Morrow MD Date : Time : Monitor : Sarah Diane RT Signature : Date : Time : Nurse : Renea Kraus RN Signature : Date : Time : [facility] [address] [place], [place] [address]
[~2019-01-05 07:06] MED LIST changes: -BAYER CHEWABLE81 MG PO; -PLAVIX75 MG PO; -RANITIDINE HCL150 M1 PO; -TOPAMAX50 MG PO
[2019-01-05] MEDS ORDERED: RANITIDINE HCL150 M1 PO (07:47)
[2019-01-05] MEDS ORDERED: TOPAMAX50 MG PO (07:48)
[2019-01-05 08:01] VITALS: BP 108/78; Ht 175.3 cm; Wt 89.5 kg
[2019-01-05 08:25] LABS: BASOPHILS 0.5 % (0-2); HEMATOCRIT 42.5 % (42.0-54.0); HEMOGLOBIN 14.5 g/dL (13.5-17.5); IMMATURE GRANULOCYTES 0.2 % (0-5); LYMPHOCYTES 20.8 % (15-50); MCH 31.9 pg (26.0-34.0); MCHC 34.1 g/dL (31.0-37.0); MCV 93.4 fL (80.0-100.0); MONOCYTES 10.4 % (2-11); NEUTROPHILS 65.1 % (40-80); PLATELET COUNT 315 10x3/uL (130-400); RBC 4.55 10x6/uL (4.20-6.10); RDW 14.1 % (11.5-14.5); WBC 10.6 10x3/uL (4.8-10.8)
[2019-01-05 08:42] LABS: CALC OSMOLALITY 281 mosm/kg (275-300); CALCIUM 8.6 mg/dL (8.5-10.1); CHLORIDE - SERUM 107 mmol/L (98-107); GLUCOSE 95 mg/dL (74-106); POTASSIUM - SERUM 4.2 mmol/L (3.5-5.1); SODIUM 140 mmol/L (136-145); UREA NITROGEN 21 mg/dL (7-18); eGFR NON AFRICAN AMERICAN 82 mL/min (90-120)
[2019-01-05 08:48] LABS: CHOL - HDL RATIO 3.5 ratio (2.3-4.9); LDL-HDL RATIO 2.4 ratio (1.5-3.5)
[2019-01-05] MEDS ORDERED: PLAVIX75 MG PO (10:17)
[2019-01-05] MEDS ORDERED: BAYER CHEWABLE81 MG PO (10:17)
--- NOTE | 2019-01-05 10:20 | NUR ---
PT ARRIVED BY STRETCHER. PLACED ON MONITOR. ASSESSMENT COMPLETED. VSS. FAMILY AT BEDSIDE. CALL LIGHT WITHIN REACH.
--- NOTE | 2019-01-05 10:35 | NUR ---
PT HAS VERY RESTLESS LEGS. RIGHT GROIN DRESSING C/D/I. NO S/S OF HEMATOMA NOTED. CALL LIGHT WITHIN REACH. FAMILY AT BEDSIDE TO REMIND PT TO KEEP RIGHT LEG STILL AND HEAD FLAT ON PILLOW.
--- NOTE | 2019-01-05 10:41 | NUR ---
DR. MELGAR NOTIFIED OF PT HAVING VERY RESTLESS LEGS. RIGHT GROIN DRESSING C/D/I. NO S/S OF HEMATOMA NOTED, BUT PT VERY RESTLESS AND HAVING TROUBLE KEEPING LEGS STILL. ALSO C/O INDIGESTION FROM PLAVIX. ORDERS RECEIVED AND PT WILL BE GIVEN IV ATIVAN AND ALSO A GI COCKTAIL. HE IS TOLERATING SIPS OF SPRITE AT THIS TIME. VSS.
--- NOTE | 2019-01-05 10:41 | OP ---
PATIENT NAME: MIKEY RIDLEY JR MEDICAL RECORD: [id number] :[birth year] LOCATION:D.CAT ADMISSION DATE: SURGEON: MARRY MELGAR MD DATE OF OPERATION: 01/05/2019 PROCEDURES: 1. PTCA stent LAD. 2. IFR LAD. 3. Left heart catheterization. 4. Selective coronary angiography. 5. Left ventriculogram. INDICATION: Angina and coronary artery disease. PROCEDURE IN DETAIL: After informed consent was obtained and after a detailed description of risks, benefits as well as alternative therapies, the patient elected to proceed with angiogram and angioplasty. The right femoral area was prepped and draped in normal sterile fashion. Right femoral artery was cannulated via modified Seldinger technique with placement of 6-Wolof sheath. All catheters exchanged through this sheath. FINDINGS: Left ventriculogram was performed in standard 30-degree WATERMAN view, reveals good cardiac wall motion, ejection fraction is 60%. SELECTIVE CORONARY ANGIOGRAPHY: 1. Left main showed no significant angiographic disease. 2. Left anterior descending has a long area of 70% stenosis in the mid vessel. An IFR was abnormal at 0.87. 3. Left circumflex has moderate irregularities, but no flow-limiting stenosis. 4. Right coronary artery has moderate irregularities, but no flow-limiting stenosis. PTCA STENT OF THE LAD: Stents used were 2.5 x 30 and 2.5 x 15, both Cobra stents. Result was 0% residual stenosis and IFR normalized to 0.97. OVERALL IMPRESSION: Successful percutaneous transluminal coronary angioplasty stent of the left anterior descending going from 70% initial stenosis with abnormal IFR pre-intervention to 0% residual stenosis with normalization of IFR post-intervention. TRANSINT:[id number] Voice Confirmation ID: [id number] DOCUMENT ID: [id number] MARRY MELGAR MD at 1041 CC: [id number] DICTATION DATE: 01/05/19 1014 BEREAVEMENT PROGRAM COORDINATOR: 01/05/19 [address] [place] [address]
--- NOTE | 2019-01-05 11:05 | NUR ---
PT RESTING WELL. LEGS HAVE CALMED SINCE HE HAS HAD HIS ATIVAN. VSS. RIGHT GROIN DRESSING C/D/I. NO S/S OF HEMATOMA NOTED. CALL LIGHT WITHIN REACH. FAMILY AT BEDSIDE.
--- NOTE | 2019-01-05 11:11 | NUR ---
DR. MELGAR ROUNDED AND SPOKE WITH PT AND PT'S FAMILY.
--- NOTE | 2019-01-05 11:56 | NUR ---
PT VOIDED IN URINAL 250cc OF CLEAR YELLOW URINE. STILL IN SUPINE POSITION. VERY RESTLESS WHEN AWAKE. IS ORIENTED X 3. PT'S MOTHER AT BEDSIDE TO ASSIST IN REMINDING PT TO KEEP RIGHT LEG STRAIGHT AND HEAD FLAT ON PILLOW.
--- NOTE | 2019-01-05 12:30 | NUR ---
RIGHT GROIN DRESSING C/D/I. NO S/S OF HEMATOMA NOTED. CALL LIGHT WITHIN REACH. FAMILY AT BEDSIDE. VSS AT THIS TIME.
--- NOTE | 2019-01-05 13:00 | NUR ---
HEAD OF BED INC TO 30 DEGREES. TOLERATED WELL. SET UP WITH SANDWICH TRAY AND DRINK. CALL LIGHT WITHIN REACH. RIGHT GROIN DRESSING C/D/I. NO S/S OF HEMATOMA NOTED.
--- NOTE | 2019-01-05 13:34 | NUR ---
PIV D/C'D WITH CATH TIP INTACT. TOLERATED WELL. VSS. RIGHT GROIN DRESSING C/D/I. NO S/S OF HEMATOMA NOTED. PT INSTRUCTED TO GET UP AND DRESSED AT THIS TIME.
--- NOTE | 2019-01-05 13:50 | NUR ---
DISCUSSED DISCHARGE INSTRUCTIONS WITH PT AND PT'S FAMILY. THEY VOICED UNDERSTANDING.
--- NOTE | 2019-01-05 13:55 | NUR ---
PT TAKEN OUT TO VEHICLE BY WHEELCHAIR. NO S/S OF DISTRESS NOTED. ALL BELONGINGS AND PAPERWORK IN HAND.
--- NOTE | 2019-01-17 17:02 | OP ---
PATIENT NAME: MIKEY RIDLEY JR MEDICAL RECORD: [id number] :62 LOCATION:D.CAT ADMISSION DATE: SURGEON: MARRY MELGAR MD DATE OF OPERATION: 01/05/2019 ADDENDUM He will follow up with [facility]. Statin therapy will be addressed at that time. TRANSINT:[id number] Voice Confirmation ID: [id number] DOCUMENT ID: [id number] MARRY MELGAR MD at 1702 CC: [id number] DICTATION DATE: 01/17/19 1156 EVENT PLANNING MANAGER: 01/17/19 1544 DEP CLI 01/05/19 [id number] [place] [address]
== END 2019-01-05 13:55 | disposition home or self-care (01) ==
LOC: D.CATH 07:06
PROVIDERS: ATTEND Internal Medicine Interventional Cardiology
DX: I25.110 Atherosclerotic heart disease of native coronary artery with unstable angina pectoris (principal); R94.30 Abnormal result of cardiovascular function study, unspecified; R06.02 Shortness of breath

== ENCOUNTER → 2019-04-20 16:08 | Outpatient (CLI) | payer MEDICAID ==
[2019-04-08 14:23] VITALS: BMI 29.6
[~2019-04-20 16:08] MED LIST changes: +AUGMENTIN 875-11 TAB PO; +BAYER CHEWABLE81 MG PO; +NORCO-7.51 TAB PO; +PLAVIX75 MG PO; +RANITIDINE HCL150 M1 PO; +TOPAMAX50 MG PO
[2019-04-20 16:38] LABS: CHOL - HDL RATIO 5.2 ratio (2.3-4.9); LDL-HDL RATIO 3.8 ratio (1.5-3.5)
== END | disposition home or self-care (01) ==
LOC: D.LABREF 16:08
PROVIDERS: ATTEND Internal Medicine Interventional Cardiology
DX: I25.10 Atherosclerotic heart disease of native coronary artery without angina pectoris (principal)

== ENCOUNTER 2019-10-31 21:42 | Emergency (ER) | payer MEDICAID ==
[~2019-10-31] VITALS: Ht 175.3 cm; Wt 75.0 kg
[2019-10-31 21:46] VITALS: Ht 175.3 cm; Wt 75.0 kg
[2019-10-31] MEDS ORDERED: METHOCARBAMOL500 MG PO (23:00)
[2019-10-31] MEDS ORDERED: ULTRAM50 MG PO (23:00)
[2019-10-31 23:23] VITALS: BP 132/89
== END 2019-10-31 23:23 | disposition home or self-care (01) ==
LOC: D.ER 21:42
DX: S16.1XXA Strain of muscle, fascia and tendon at neck level, initial encounter (principal); K21.9 Gastro-esophageal reflux disease without esophagitis; G62.9 Polyneuropathy, unspecified; Z86.73 Personal history of transient ischemic attack (TIA), and cerebral infarction without residual deficits